=== PATIENT | male | born 1955 | race Caucasian/White ===

== ENCOUNTER 2017-07-24 15:56 | Emergency (ER) | payer SELFPAY ==
--- NOTE | 2017-07-24 16:19 | EDM.PDOC ---
ED HPI GENERAL MEDICAL PROBLEM - General Chief Complaint: Trauma Stated Complaint: Right wrist injury Time Seen by Provider: 07/24/17 15:56 Source of Information: Reports: Patient, RN Notes Reviewed History Limitations: Reports: No Limitations - History of Present Illness INITIAL COMMENTS - FREE TEXT/NARRATIVE: 62 year old male presents to the ED today for chief complaint of right wrist pain and swelling. He fell off a trailer this morning, falling approximately 8- 10. He landed on an outreached hand which he says took most of the impact. The injury occurred in [facility]. His primary concern is his right wrist pain. He denies numbness or tingling. He did hit his face on the gravel and has abrasions to his face. He feels he may have been unconscious for a brief minute because he doesn't remember them calling EMS. EMS did evaluate him on scene but he declined transportation to medical facility. He drove himself home from [place], [place]. He denies headache, vision changes, neck pain, chest pain, shortness of breath, abdominal pain, nausea, vomiting, back pain, or lower extremity pain. He is not on any blood thinners. He takes Aleve as needed for pain and is on Suboxone. He has been taking Suboxone for 7 years. Right Wrist Pain Score (Numeric/FACES): 6 - Related Data Allergies Allergy/AdvReac Type Severity Reaction Status Date / Time No Known Allergies Allergy Verified 07/24/17 16:09 Home Meds: Home Meds . [No Known Home Meds] 07/24/17 [History] Review of Systems - Review of Systems Review Of Systems: See Below Eyes: Reports: No Symptoms. Denies: Previous Injury, Tunnel Vision, Vision Change Ears: Reports: No Symptoms. Denies: Tinnitus Respiratory: Reports: No Symptoms. Denies: Shortness of Breath Cardiovascular: Reports: No Symptoms. Denies: Chest Pain, Lightheadedness GI/Abdominal: Reports: No Symptoms. Denies: Abdominal Pain, Nausea, Vomiting Musculoskeletal: Reports: Arm Pain. Denies: Neck Pain, Back Pain, Hand Pain Skin: Reports: Other (abrasions to face ) Neurological: Denies: Confusion, Dizziness, Headache, Numbness, Tingling ED EXAM, GENERAL - Physical Exam Exam: See Below Exam Limited By: No Limitations General Appearance: Alert, WD/WN, No Apparent Distress Eye Exam: Bilateral Eye: EOMI, Normal Inspection, PERRL Ears: Normal External Exam, Normal Canal, Hearing Grossly Normal, Normal TMs Nose: Normal Inspection, Normal Mucosa, No Blood Throat/Mouth: Normal Inspection, Normal Oropharynx, No Airway Compromise Head: Other (no facial swelling apreciated. He has dried blood to his face with abrasions noted. ) Neck: Normal Inspection, Supple, Non-Tender, Full Range of Motion. No: Limited Range of Motion, Tender Midline Respiratory/Chest: No Respiratory Distress, Lungs Clear, Normal Breath Sounds, No Accessory Muscle Use, Chest Non-Tender, Other (no crepitus or subcutaneous emphysema ) Cardiovascular: Normal Peripheral Pulses, Regular Rate, Rhythm, No Edema, No Murmur GI/Abdominal: Normal Bowel Sounds, Soft, Non-Tender, No Distention Back Exam: Normal Inspection, Full Range of Motion. No: Muscle Spasm, Paraspinal Tenderness, Vertebral Tenderness Extremities: Other (right wrist is echymotic. He has bony point tenderness to his distal radius and ulna. ) Neurological: Alert, Oriented, Normal Cognition, No Motor/Sensory Deficits Skin Exam: Warm, Dry, Other (abrasions to left side of face ) Course - Vital Signs Last Recorded V/S: Last Vital Signs Temp 98.6 F 07/24/17 16:45 Pulse 93 07/24/17 16:45 Resp 18 07/24/17 16:45 BP 150/91 H 07/24/17 16:45 Pulse Ox 97 07/24/17 16:45 - Orders/Labs/Meds Orders: Active Orders 24 hr Category Date Time Status Wrist Comp Min 3V Rt [CR] Stat Exams 07/24/17 16:09 Taken - Re-Assessments/Exams Free Text/Narrative Re-Assessment/Exam: Trauma alert was called upon patient's arrival. Dr. Diana also saw the patient. Patient has a normal neuroexam and is approximately 5 hours out from his fall. CT scan was offered to patient but he declined. This was discussed with Dr. Diana who agrees that head CT is not indicated considering he has a normal neurologic exam. Right wrist x-ray reveals a comminuted, mildly displaced, intra-articular fracture of the distal radius. He also has a non-displaced ulnar styloid fracture. Patient was placed in a sugar-tong splint and a sling. I was able to reach Dr. Avitia. He will see the patient in f/u tomorrow morning at 8am as this will likely require surgery. Patient was notified of instructions. Departure - Departure Time of Disposition: 16:53 Disposition: Home, Self-Care 01 Condition: Good Clinical Impression: Minor head injury with loss of consciousness Qualifiers: Encounter type: initial encounter Qualified Code(s): S06.9X9A - Unspecified intracranial injury with loss of consciousness of unspecified duration, initial encounter Fracture of distal radius and ulna Qualifiers: Encounter type: initial encounter Fracture type: closed Laterality: right Qualified Code(s): S52.501A - Unspecified fracture of the lower end of right radius, initial encounter for closed fracture - Discharge Information Referrals: Jed Montejo DO [Primary Care Provider] - Forms: ED Department Discharge Additional Instructions: Fracture of the distal radius and ulna Rest, ice and elevate Keep splint clean and dry, wear at all times. Wear sling when up and moving, may remove and elevate arm on pillows Ibuprofen 600mg every 8 hours for pain Tylenol 650mg every 4-6 hours as needed for pain not relieved by Ibuprofen Do not exceed 3000mg of Tylenol per day Present to clinic tomorrow morning around 7:[address] Avitia at 8am. Abrasions and lacerations to face Clean with gentle soap and water twice a day then apply antibiotic ointment Follow-up in clinic if you develop any signs or symptoms of infection ( increased drainage, redness, swelling, pain or fever) Minor Head Injury We have found no evidence to indicate that your head injury was serious. However , new symptoms and unexpected complications can develop hours or even days after the injury. The 24 hours are the most crucial and you should remain with a reliable laborer/key man at least during this period If any of the following signs develop, call your doctor or come back to the ED: Drowsiness or increasing difficulty in awakening patient Nausea and vomiting Convulsions or fits Bleeding or watery drainage from the nose or ear Severe headaches Weakness or loss of feeling in the arms or legs Worsening or loss of balance Confusion or strange behavior One pupil (black part of eye) much larger than the other: peculiar movement of the eyes, double vision, or other visual disturbances A very slow or very rapid pulse, or unusual breathing pattern If there is swelling at the site of the injury, apply an ice pack, making sure that there is a cloth or towel between the ice pack and the skin. If swelling increases markedly in spite of the ice pack application, call us or come back to the ED. You may eat or drink as usual if you desire. However, you should not drink alcoholic beverages for at least 3 days after your injury. DO NOT use aspirin containing medicines. - My Orders Last 24 Hours: My Active Orders 07/24/17 16:09 Wrist Comp Min 3V Rt [CR] Stat - Assessment/Plan Last 24 Hours: My Active Orders 07/24/17 16:09 Wrist Comp Min 3V Rt [CR] Stat
--- NOTE | 2017-07-25 09:42 | CR ---
Right wrist: Three views of the right wrist are obtained. Comparison: No previous study. Mildly comminuted distal radial fracture is seen with articular extension and posterior impaction causing dorsal tilt of the distal radial articular margin. Nondisplaced fracture within the ulnar styloid process is seen. Severe degenerative change is noted within the CMC joint of the thumb. Soft tissue swelling is seen. Cystic change is noted within the lunate and within the triquetral bone which is incidental. Impression: 1. Colles' type fracture as described above. 2. Degenerative change as noted above. Diagnostic code #3
== END 2017-07-24 17:26 | disposition home or self-care (01) ==
LOC: JD.ED 15:56
DX: S06.9X9A Unspecified intracranial injury with loss of consciousness of unspecified duration, initial encounter (principal); S52.614A Nondisplaced fracture of right ulna styloid process, initial encounter for closed fracture; S52.571A Other intraarticular fracture of lower end of right radius, initial encounter for closed fracture; W17.89XA Other fall from one level to another, initial encounter
CPT/HCPCS: 29125; 73110-26-RT; 73110-RT; 99284-25

== ENCOUNTER 2017-07-28 12:51 | Day surgery (SDC) | payer SELFPAY ==
[2017-07-28] MEDS ORDERED: Bupivacaine 0.25% 30 ML SDV ONE (13:08)
--- NOTE | 2017-07-28 13:32 | PCM.PREANE ---
Preanesthetic Assessment - Procedure Proposed Procedure: R radial reduction (ORIF vs closed) - Anesthesia/Transfusion/Family Hx Anesthesia History: Prior Anesthesia Without Reaction Family History of Anesthesia Reaction: No Transfusion History: Prior Transfusion Without Reaction Intubation History: Unknown - Review of Systems General: No Symptoms Pulmonary: No Symptoms Cardiovascular: No Symptoms Gastrointestinal: No Symptoms Neurological: No Symptoms Other: Reports: None - Physical Assessment NPO Status Date: 07/28/17 NPO Status Time: 06:00 O2 Sat by Pulse Oximetry: 99 Respiratory Rate: 16 Vital Signs: Last Vital Signs Temp 100.4 F 07/28/17 13:05 Pulse 99 07/28/17 13:05 Resp 16 07/28/17 13:05 BP 163/94 H 07/28/17 13:05 Pulse Ox 99 07/28/17 13:05 Height: 1.63 m Weight: 48.081 kg ASA Class: 3 Mental Status: Alert & Oriented x3 Dentition: Reports: Edentulous Thyro-Mental Finger Breadths: 3 Mouth Opening Finger Breadths: 3 Lungs: Clear to Auscultation, Normal Respiratory Effort Cardiovascular: Regular Rate, Regular Rhythm - Allergies Allergies/Adverse Reactions: Allergies Allergy/AdvReac Type Severity Reaction Status Date / Time No Known Allergies Allergy Verified 07/24/17 16:09 - Blood Blood Available: No - Anesthesia Plan Pre-Op Medication Ordered: None - Acknowledgements Anesthesia Type Planned: General Anesthesia Pt an Appropriate Candidate for the Planned Anesthesia: Yes Alternatives and Risks of Anesthesia Discussed w Pt/Guardian: Yes Pt/Guardian Understands and Agrees with Anesthesia Plan: Yes PreAnesthesia Questionnaire HEENT History: Reports: Impaired Vision Other HEENT History: wears corrective lenses Gastrointestinal History: Reports: Other (See Below) - Infectious Disease History Infectious Disease History: Reports: Hepatitis C - Past Surgical History HEENT Surgical History: Reports: None GI Surgical History: Reports: Appendectomy - SUBSTANCE USE Smoking Status *Q: Current Every Day Smoker Tobacco Use Within Last Twelve Months: Cigarettes Second Hand Smoke Exposure: No Recreational Drug Use History: No - HOME MEDS Home Medications: Home Meds . [No Known Home Meds] 07/24/17 [History] - CURRENT (IN HOUSE) MEDS Current Meds: Current Medications Discontinued Medications Bupivacaine HCl (Marcaine 0.25%) Confirm Administered Dose 30 ml .ROUTE .STK- MED ONE Stop: 07/28/17 13:09
[2017-07-28] MEDS ORDERED: Lidocaine 1%/Sod Bicarbonate in NS 8.4% 1 ML Syringe IV PRN (13:42)
[2017-07-28] MEDS ORDERED: Sodium Chloride 0.9% 10 ML Syringe FLUSH PRN (13:42)
[2017-07-28] MEDS ORDERED: Lactated Ringers 1,000 ML IV SCH (13:45)
[2017-07-28] MEDS ORDERED: Acetaminophen 1,000 MG/100 ML Infusion Bottle IV ONE (13:50)
[2017-07-28] MEDS ORDERED: Lidocaine 1% 4 ML ONE (14:02)
[2017-07-28] MEDS ORDERED: Propofol 200 MG/20 ML SDV ONE (14:02)
[2017-07-28] MEDS ORDERED: Ketorolac 30 MG/ML SDV ONE (15:10)
[2017-07-28] MEDS ORDERED: Ondansetron 4 MG/2 ML SDV ONE (15:15)
[2017-07-28] MEDS ORDERED: Dexamethasone 4 MG/ML 5 ML MDV ONE (15:15)
[2017-07-28] MEDS ORDERED: Ondansetron 4 MG/2 ML SDV IVPUSH PRN (15:22)
--- NOTE | 2017-07-28 15:24 | PCM.POSTAN ---
POST ANESTHESIA ASSESSMENT - MENTAL STATUS Mental Status: Alert, Oriented - VITAL SIGNS Pulse Rate: 61 SaO2: 100 Resp Rate: 12 Blood Pressure: 120/79 Temperature: 98.8 F - RESPIRATORY Respiratory Status: Respiratory Rate WNL, Airway Patent, O2 Saturation Stable - CARDIOVASCULAR CV Status: Pulse Rate WNL, Blood Pressure Stable - GASTROINTESTINAL GI Status: No Symptoms - PAIN Pain Score: 0 - POST OP HYDRATION Hydration Status: Adequate & Stable
--- NOTE | 2017-07-28 15:39 | CR ---
Right wrist: Multiple fluoroscopic spot views were obtained utilizing C-arm device of the right wrist. Comparison: Previous right wrist study of 07/24/17. Previous wrist fracture shows evidence of reduction with final film showing fiberglass cast in place. Stable degenerative change is seen. Ulnar styloid avulsion fracture is again noted. Fluoroscopy time given as 14.2 seconds. Impression: 1. Reduction of previous distal radial fracture. Incidental note of ulnar styloid avulsion fracture. 2. Final film shows placement of fiberglass cast. Diagnostic code #2
--- NOTE | 2017-07-28 17:26 | PCM.OPNOTE ---
- General Post-Op/Procedure Note Date of Surgery/Procedure: 07/28/17 Operative Procedure(s): closed reduction with short arm casting right distal radius Pre Op Diagnosis: closed right intra-articular distal radius and ulnar styloid fracture Post-Op Diagnosis: Same Anesthesia Technique: General LMA Primary Surgeon: Yonatan Avitia Anesthesia Provider: Js Dias EBL in mLs: 0 Complications: None Condition: Good Free Text/Narrative:: Intake & Output 07/28/17 07/28/17 07/28/17 06:59 14:59 22:59 Intake Total 750 Balance 750
--- NOTE | 2017-08-01 11:19 | OR ---
DATE OF OPERATION: 07/28/2017 SURGEON: Yonatan Avitia MD OPERATION PERFORMED: Closed reduction, short-arm casting, right distal radius fracture. PREOPERATIVE DIAGNOSIS: Closed right intraarticular distal radius and ulnar styloid fractures. POSTOPERATIVE DIAGNOSIS: Closed right intraarticular distal radius and ulnar styloid fractures. ANESTHESIA: General LMA. ANESTHESIA PROVIDER: Js Dias CRNA ESTIMATED BLOOD LOSS: Not applicable. COMPLICATIONS: None. CONDITION: Stable. DESCRIPTION OF PROCEDURE: The patient was identified in the preop holding area. Proper site was marked and identified by the surgeon. The patient was taken back to the operative theater where, after adequate anesthesia, the patient had C-arm fluoroscopic films showing impacted dorsally intraarticular distal radius fracture with shortening. Subsequently, closed reduction maneuver was done with ulnar deviation and traction as well as volar traction. At this time, C-arm fluoroscopic films showed adequate religion of height as well as tilt at this time. At this time, it was determined that we would be able to short-arm cast this. At this time, the patient had a short-arm cast applied. Under-cast padding was applied. A cotton Webril was applied, and then the cast material was applied. The patient was held in an ulnarly deviated flexed position to allow for better reduction. At this time, was found to have acceptable reduction on both AP and lateral views. The patient tolerated the procedure well and was sent to PACU in stable condition. GISELE /[id number]
== END 2017-07-28 16:15 | disposition home or self-care (01) ==
LOC: JD.SDS 12:51
PROVIDERS: ATTEND Orthopaedic Surgery
DX: S52.571A Other intraarticular fracture of lower end of right radius, initial encounter for closed fracture (principal); S52.611A Displaced fracture of right ulna styloid process, initial encounter for closed fracture; F19.20 Other psychoactive substance dependence, uncomplicated; B19.20 Unspecified viral hepatitis C without hepatic coma; F17.210 Nicotine dependence, cigarettes, uncomplicated; Z79.899 Other long term (current) drug therapy; Z98.49 Cataract extraction status, unspecified eye; Z90.49 Acquired absence of other specified parts of digestive tract
CPT/HCPCS: 25605; 76000; J1100; J1885; J2405; J7120; 01820; J2704; J3490